=== PATIENT | female | born 1965 | race Caucasian/White ===

== ENCOUNTER 2017-04-07 08:40 | Emergency (ER) | payer SELFPAY ==
--- NOTE | 2017-04-07 09:24 | ER Document Report ---
ED Medical Screen (RME) - General Information source: Patient TRAVEL OUTSIDE OF THE [place] IN LAST 30 DAYS: No <BIJU DOVER - Last Filed: 04/07/17 09:28> <INCOLE FERNANEDS - Last Filed: 04/07/17 12:27> - General Chief Complaint: Abdominal Pain Stated Complaint: SIDE PAIN Time Seen by Provider: 04/07/17 09:20 Notes: 51 year old female with a PMHx of HTN who presents to the ED with RLQ abdominal pain for 2 months. She states that her abdominal pain is consistent for the past two months and she has seen her OB, Dr. Goff who performed an ultrasound and sonogram with abnormal findings per patient. She states that Dr. Goff would like to have an CT performed. Patient is still menstruating. ( BIJU DOVER) - Related Data Allergies/Adverse Reactions: No Known Allergies Allergy (Verified 04/07/17 08:42) Past Medical History - General Information source: Patient - Social History Chew tobacco use (# tins/day): No Frequency of alcohol use: None Drug Abuse: None - Past Medical History Cardiac Medical History: Reports: Hx Hypertension Renal/ Medical History: Denies: Hx Peritoneal Dialysis <BIJU DOVER - Last Filed: 04/07/17 09:28> Review of Systems - Review of Systems Gastrointestinal: See HPI, Abdominal pain - RLQ <BIJU DOVER - Last Filed: 04/07/17 09:28> Physical Exam - General General appearance: Appears well, Alert In distress: None - Respiratory Respiratory status: No respiratory distress Chest status: Nontender Breath sounds: Normal Chest palpation: Normal - Abdominal Inspection: Normal Tenderness: Nontender - Neurological Neuro grossly intact: Yes Cognition: Normal Orientation: AAOx4 - Psychological Associated symptoms: Normal affect, Normal mood - Skin Skin Temperature: Warm Skin Moisture: Dry Skin Color: Normal <BIJU DOVER - Last Filed: 04/07/17 09:28> - Vital signs Vitals: Temp Pulse Resp BP Pulse Ox 98.1 F 58 L 16 123/75 98 04/07/17 08:43 04/07/17 08:43 04/07/17 08:43 04/07/17 08:43 04/07/17 08:43 Course <BIJU DOVER - Last Filed: 04/07/17 09:28> - Laboratory Result Diagrams: 04/07/17 09:35 04/07/17 09:35 - Diagnostic Test Radiology reviewed: Image reviewed, Reports reviewed <NICOLE FERNANDES - Last Filed: 04/07/17 12:27> - Re-evaluation Re-evalutation: 04/07/17 12:24 Uneventful, CT report and lab reports reviewed. Patient remained comfortable ( NICOLE FERNANDES) - Vital Signs Vital signs: Temp Pulse Resp BP Pulse Ox 98.1 F 58 L 16 123/75 98 04/07/17 08:43 04/07/17 08:43 04/07/17 08:43 04/07/17 08:43 04/07/17 08:43 - Laboratory Laboratory results interpreted by me: 04/07/17 09:35 AST 12 L - Diagnostic Test Radiology results interpreted by me: 04/07/17 12:25 CT of the abdomen and pelvis came back normal (NICOLE FERNANDES) Doctor's Discharge <BIJU DOVER - Last Filed: 04/07/17 09:28> <NICOLE FERNANDES - Last Filed: 04/07/17 12:27> - Discharge Clinical Impression: Abdominal pain Qualifiers: Abdominal location: right lower quadrant Qualified Code(s): R10.31 - Right lower quadrant pain Retained feces Qualifiers: Constipation type: slow transit constipation Qualified Code(s): K59.01 - Slow transit constipation Instructions: Recurring Abdominal Pain, Child ([facility]), Observation for Appendicitis ([facility]), Antispasmodics ([facility]) Prescriptions: Dicyclomine HCl [Bentyl 10 mg Capsule] 1 cap PO TID #30 cap Lactulose [Cephulac Syrup 20 gm/30 ml Udcup] 20 gm PO BID #120 udc Scribe Documentation - Scribe Written by Oneyda:: Oneyda Mercado 04/07/2017 0932 acting as scribe for :: Stephan <BIJU DOVER - Last Filed: 04/07/17 09:28>
[2017-04-07 09:54] LABS: ABSOLUTE MONOCYTES (AUTO) 0.5 10^3/uL (0.1-1.4); ABSOLUTE NEUT (AUTO) 3.3 10^3/uL (1.7-8.2); BASOPHILS % (AUTO) 0.4 % (0-2); EOSINOPHILS % (AUTO) 0.5 % (0-6); HEMATOCRIT 42.3 % (36.0-47.0); HEMOGLOBIN 14.4 g/dL (12.0-15.5); LYMPHOCYTES % (AUTO) 33.4 % (13-45); MEAN CORPUSCULAR HEMOGLOBIN 29.4 pg (27.0-33.4); MEAN CORPUSCULAR HGB CONC 33.9 g/dL (32.0-36.0); MEAN CORPUSCULAR VOLUME 87 fl (80-97); MONOCYTES % (AUTO) 8.7 % (3-13); PLATELET COUNT 269 10^3/uL (150-450); RED BLOOD COUNT 4.88 10^6/uL (3.72-5.28); RED CELL DISTRIBUTION WIDTH 13.3 % (11.5-14.0); TOTAL CELLS COUNTED % (AUTO) 100 %; WHITE BLOOD COUNT 5.9 10^3/uL (4.0-10.5)
[2017-04-07 09:58] LABS: APPEARANCE,URINE CLEAR; BILIRUBIN,URINE NEGATIVE (NEGATIVE); COLOR,URINE YELLOW; GLUCOSE, URINE NEGATIVE (NEGATIVE); KETONES,URINE NEGATIVE (NEGATIVE); LEUKOCYTE ESTERASE,URINE NEGATIVE (NEGATIVE); NITRITE,URINE NEGATIVE (NEGATIVE); PROTEIN,URINE NEGATIVE (NEGATIVE); URINE SPECIFIC GRAVITY 1.015; UROBILINOGEN,URINE NEGATIVE mg/dL (<2.0)
[2017-04-07 10:11] LABS: ALANINE AMINOTRANSFERASE 19 U/L (9-52); ALBUMIN 4.6 g/dL (3.5-5.0); ALKALINE PHOSPHATASE 72 U/L (38-126); ANION GAP 14 (5-19); ASPARTATE AMINO TRANSFERASE 12 U/L (14-36); BILIRUBIN,DIRECT 0.3 mg/dL (0.0-0.4); BILIRUBIN,TOTAL 0.7 mg/dL (0.2-1.3); BLOOD UREA NITROGEN 16 mg/dL (7-20); CALCIUM 9.7 mg/dL (8.4-10.2); CARBON DIOXIDE 27 mmol/L (22-30); CHLORIDE 98 mmol/L (98-107); GLUCOSE 88 mg/dL (75-110); POTASSIUM 4.4 mmol/L (3.6-5.0); SODIUM 139.4 mmol/L (137-145)
--- NOTE | 2017-04-07 10:53 | RADIOLOGY REPORT (SQ) ---
EXAM DESCRIPTION: CT ABDOMEN IV CONTRAST ONLY COMPLETED DATE/TIME: 04/07/2017 10:46 am REASON FOR STUDY: RLQ pain COMPARISON: None. TECHNIQUE: CT scan of the abdomen and pelvis performed using helical scanning technique with dynamic intravenous contrast injection. No oral contrast. Images reviewed with lung, soft tissue, and bone windows. Reconstructed coronal and sagittal MPR images reviewed. Delayed images for evaluation of the urinary system also acquired. All images stored on PACS. All CT scanners at this facility use dose modulation, iterative reconstruction, and/or weight based d osing when appropriate to reduce radiation dose to as low as reasonably achievable (ALARA). [facility]: Dose Right [facility]: CareDose [facility]: Dose Right [facility]: Teradose 4D [facility]: [email or web address] CONTRAST TYPE AND DOSE: contrast/concentration: Isovue 370.00 mg/ml; Total Contrast Delivered: 80.0 ml; Total Saline Delivered: 56.0 ml RENAL FUNCTION: GFR > 60. RADIATION DOSE: CT Rad equipment meets quality standard of care and radiation dose reduction techniq ues were employed. CTDIvol: 8.2 - 11.8 mGy. DLP: 1078 mGy-cm.. LIMITATIONS: None. FINDINGS: LOWER CHEST: No significant findings. No nodules or infiltrates. LIVER: Normal size. No masses. No dilated ducts. SPLEEN: Normal size. No focal lesions. PANCREAS: No masses. No significant calcifications. No adjacent inflammation or peripancreatic fluid collections. Pancreatic duct not dilated. GALLBLADDER: No identified stones by CT criteria. No inflammatory changes to suggest cholecystitis. ADRENAL GLANDS: No significant masses or asymmetry. RIGHT KIDNEY AND URETER: No solid masses. No significant calcifications. No hydronephrosis or hyd roureter. LEFT KIDNEY AND URETER: No solid masses. No significant calcifications. No hydronephrosis or hydr oureter. AORTA AND VESSELS: No aneurysm. No dissection. Renal arteries, SMA, celiac without stenosis. RETROPERITONEUM: No retroperitoneal adenopathy, hemorrhage or masses. BOWEL AND PERITONEAL CAVITY: No masses or inflammatory changes. No free fluid or peritoneal masses. APPENDIX: Normal. PELVIS: No mass. No free fluid. Normal bladder. ABDOMINAL WALL: No masses. No hernias. BONES: No significant or acute findings. OTHER: No other significant finding. IMPRESSION: NO SIGNIFICANT OR ACUTE FINDING IN THE ABDOMEN OR PELVIS ON CT SCAN WITH IV CONTRAST. TECHNICAL DOCUMENTATION: JOB ID: [id number] Quality ID # [id number]: Final reports with documentation of one or more dose reduction techniques (e.g., Au tomated exposure control, adjustment of the mA and/or kV according to patient size, use of iterative reconstruction technique) 2010 [employer]- All Rights Reserved Reading location - IP/workstation name: [email or web address]
[2017-04-07 12:41] VITALS: BP 114/74
== END 2017-04-07 12:41 | disposition home or self-care (01) ==
LOC: ER 08:40
DX: K59.01 Slow transit constipation (principal); R10.31 Right lower quadrant pain; I10 Essential (primary) hypertension
CPT/HCPCS: 36415; 74160; 80053; 81001; 84703; 85025; 99284

== ENCOUNTER 2018-07-24 18:32 | Emergency (ER) | payer BC ==
[2018-07-24] MEDS ORDERED: IBUPROFEN 800 MG TABLET PO ONE (19:18)
[2018-07-24 19:31] LABS: APPEARANCE,URINE CLEAR; BILIRUBIN,URINE NEGATIVE (NEGATIVE); COLOR,URINE COLORLESS; GLUCOSE, URINE NEGATIVE (NEGATIVE); KETONES,URINE NEGATIVE (NEGATIVE); LEUKOCYTE ESTERASE,URINE NEGATIVE (NEGATIVE); NITRITE,URINE NEGATIVE (NEGATIVE); PROTEIN,URINE NEGATIVE (NEGATIVE); URINE SPECIFIC GRAVITY 1.003; UROBILINOGEN,URINE NEGATIVE mg/dL (<2.0)
--- NOTE | 2018-07-24 20:14 | RADIOLOGY REPORT (SQ) ---
EXAM DESCRIPTION: US PELVIS TRANSVAGINAL COMPLETED DATE/TME: 07/24/2018 19:17 EXAM DESCRIPTION: Right pelvic pain CLINICAL HISTORY: right pelvic pain COMPARISON: None. FINDINGS: Transvaginal images of the pelvis were submitted. The uterus measures 9.5 x 6.4 x 5 cm. The endometrial complex measured 4.5 mm which is within normal limits. There is a 1.5 x 1.2 x 1 cm cyst at the level of the upper cervix compatible with a nabothian cyst. There is a 8 x 5 x 6 mm cyst within the fundus of the uterus without discrete internal echoes. The right ovary measured 2.2 x 1.7 x 1.9 cm and contains a 1.7 x 1.7 x 1.4 cm ovarian cyst. As per best practice protocol, no further follow-up imaging of this cyst recommended. Left ovary measured 1.8 x 2.8 x 2.1 cm. There is no sonographic evidence of ovarian torsion. IMPRESSION: 8 mm cystic structure at the uterine fundus of unknown etiology. Correlation with status recommended. Short-term follow-up recommended.
--- NOTE | 2018-07-24 22:33 | ER Document Report ---
ED General - General Chief Complaint: Abdominal Pain Stated Complaint: ABDOMINAL PAIN Time Seen by Provider: 07/24/18 19:09 Mode of Arrival: Ambulatory Information source: Patient, [facility] Records Notes: 52-year-old female with hypertension, migraine headaches, hypothyroidism, recent diagnosis of bacterial vaginosis presents with 3 days of right lower quadrant pain that she describes as a an aching sharp pain that is intermittent, worse with movement and not associated with any fever, chills, nausea, vomiting, diarrhea. Patient states that her last bowel movement was yesterday. She denies any black or bloody stools. She does state that she was diagnosed by her primary care physician with bacterial vaginosis and started on Flagyl which she has been taken. Patient has not had any vaginal discharge. She does report a colonoscopy in 2017 which she reports to be normal. She has not tried any medication for this pain and is currently declining any medication. TRAVEL OUTSIDE OF THE [place] IN LAST 30 DAYS: No - HPI Onset: Other Onset/Duration: Gradual, Persistent Quality of pain: Achy, Sharp Severity: Moderate Pain Level: 2 Associated symptoms: denies: Body/muscle aches, Chest pain, Diarrhea, Fever, Nausea, Vomiting, Shortness of breath Exacerbated by: Movement Relieved by: Remaining still Similar symptoms previously: Yes Recently seen / treated by doctor: Yes - Related Data Allergies/Adverse Reactions: adhesive tape Allergy (Verified 07/24/18 18:34) Past Medical History - General Information source: Patient, [facility] Records - Social History Smoking Status: Never Smoker Frequency of alcohol use: None Drug Abuse: None Lives with: Spouse/Significant other Family History: Reviewed & Not Pertinent Patient has suicidal ideation: No Patient has homicidal ideation: No - Past Medical History Cardiac Medical History: Reports: Hx Hypertension Denies: Hx Heart Attack Pulmonary Medical History: Denies: Hx Asthma Neurological Medical History: Reports: Hx Migraine. Denies: Hx Cerebrovascular Accident, Hx Seizures Renal/ Medical History: Denies: Hx Peritoneal Dialysis GI Medical History: Denies: Hx Hepatitis, Hx Hiatal Hernia, Hx Ulcer Infectious Medical History: Denies: Hx Hepatitis Past Surgical History: Reports: Hx Abdominal Surgery - [id number] fallopian, Hx Section - 1, Hx Gynecologic Surgery - ablation, Hx Orthopedic Surgery - l carpal tunnel, right shoulder, left shoulder. Denies: Hx Mastectomy, Hx Open Heart Surgery, Hx Pacemaker Review of Systems - Review of Systems Notes: REVIEW OF SYSTEMS: CONSTITUTIONAL : Denies fever, chills, or sweats. Denies recent illness. Denies weight loss, recent hospitalizations. EENT: Denies visual changes, eye pain. Denies sore throat, oral lesions, difficulty swallowing. CARDIOVASCULAR: Denies chest pain. Denies palpitations. Denies lower extremity edema. RESPIRATORY: Denies cough. Denies shortness of breath, wheezing. GASTROINTESTINAL: Denies abdominal distention. Denies nausea, vomiting, or diarrhea. Denies blood in vomitus, stools, or per rectum. Denies black, tarry stools. Denies constipation. GENITOURINARY: Denies difficulty urinating, painful urination, frequency, blood in urine, or vaginal discharge. MUSCULOSKELETAL: Denies back or neck pain or stiffness. Denies joint pain or swelling. SKIN: Denies rash, lesions or sores. HEMATOLOGIC : Denies easy bruising or bleeding. LYMPHATIC: Denies swollen glands. NEUROLOGICAL: Denies confusion or altered mental status. Denies loss of consciousness. Denies dizziness or lightheadedness. Denies headache. Denies weakness or paralysis. Denies problems difficulty with ambulation, slurred speech. Denies sensory loss, numbness, or tingling. Denies seizures. PSYCHIATRIC: Denies anxiety or stress. Denies depression, suicidal ideation, or homicidal ideation. Denies visual or auditory hallucinations. Physical Exam - Vital signs Vitals: Temp Pulse Resp BP Pulse Ox 97.6 F 61 16 126/72 H 96 07/24/18 18:43 07/24/18 18:43 07/24/18 18:43 07/24/18 18:43 07/24/18 18:43 - Notes Notes: PHYSICAL EXAMINATION: GENERAL: Well-appearing, well-nourished and in no acute distress. HEAD: Atraumatic, normocephalic. EYES: Pupils equal round and reactive to light, extraocular movements intact, conjunctiva are normal. ENT: Nares patent, oropharynx clear without exudates. Moist mucous membranes. NECK: Normal range of motion, supple without lymphadenopathy LUNGS: Breath sounds clear to auscultation bilaterally and equal. No wheezes rales or rhonchi. HEART: Regular rate and rhythm without murmurs ABDOMEN: Mild tenderness with palpation to the right lower quadrant. No guarding, no rebound. No masses appreciated. Female : deferred Musculoskeletal: Normal range of motion, no pitting or edema. No cyanosis. NEUROLOGICAL: Cranial nerves grossly intact. Normal speech, normal gait. Normal sensory, motor exams PSYCH: Normal mood, normal affect. SKIN: Warm, Dry, normal turgor, no rashes or lesions noted. Course - Re-evaluation Re-evalutation: 07/24/18 22:32 Transvaginal US 07/24/18 19:17 IMPRESSION: 8 mm cystic structure at the uterine fundus of unknown etiology. Correlation with status recommended. Short-term follow-up recommended. Temp Pulse Resp BP Pulse Ox 97.6 F 61 16 126/72 H 96 07/24/18 18:43 07/24/18 18:43 07/24/18 18:43 07/24/18 18:43 07/24/18 18:43 Laboratory 07/24/18 07/24/18 07/24/18 18:44 18:44 22:49 WBC 4.8 RBC 4.46 Hgb 13.2 Hct 37.9 MCV 85 MCH 29.5 MCHC 34.8 RDW 13.1 Plt Count 217 Seg Neutrophils % 45.6 Lymphocytes % 43.2 Monocytes % 8.9 Eosinophils % 1.9 Basophils % 0.4 Absolute Neutrophils 2.2 Absolute Lymphocytes 2.1 Absolute Monocytes 0.4 Absolute Eosinophils 0.1 Absolute Basophils 0.0 Sodium Potassium Chloride Carbon Dioxide Anion Gap BUN Creatinine Est GFR ( Amer) Est GFR (Non-Af Amer) Glucose Calcium Total Bilirubin Direct Bilirubin Neonat Total Bilirubin Neonat Direct Bilirubin Neonat Indirect Bili AST ALT Alkaline Phosphatase Total Protein Albumin Lipase Urine Color COLORLESS Cancelled Urine Appearance CLEAR Cancelled Urine pH 7.0 Cancelled Ur Specific [place] 1.003 Cancelled Urine Protein NEGATIVE Cancelled Urine Glucose (UA) NEGATIVE Cancelled Urine Ketones NEGATIVE Cancelled Urine Blood NEGATIVE Cancelled Urine Nitrite NEGATIVE Cancelled Urine Bilirubin NEGATIVE Cancelled Urine Urobilinogen NEGATIVE Cancelled Ur Leukocyte Esterase NEGATIVE Cancelled Urine WBC (Auto) Cancelled Urine RBC (Auto) Cancelled U Hyaline Cast (Auto) Cancelled Urine Bacteria (Auto) Cancelled Urine Red Cell Clumps Cancelled Urine WBC Clumps Cancelled Squamous Epi Cells Auto <1 Cancelled U Non-Squamous Epis Auto Cancelled Calcium Carbonate Cryst Cancelled Calcium Phosphate Cryst Cancelled Calcium Oxalate Cr Auto Cancelled Leucine Crystals Cancelled Cystine Crystals Cancelled Uric Acid Cryst (Auto) Cancelled Triple Phos Cryst (Auto) Cancelled Tyrosine Crystals Cancelled Amorphous Sediment Auto Cancelled Cellular Casts Cancelled Epithelial Casts (Auto) Cancelled Fatty Casts Cancelled Granular Casts (Auto) Cancelled Waxy Casts (Auto) Cancelled Broad Casts Cancelled RBC Casts (Auto) Cancelled WBC Casts (Auto) Cancelled Urine Mucus (Auto) RARE Cancelled U Trichomonas (Auto) Cancelled Ur Yeast w Hyphae Cancelled Urine Yeast (Budding) Cancelled Urine Ascorbic Acid NEGATIVE Cancelled Urine HCG, Qual NEGATIVE 07/24/18 22:49 WBC RBC Hgb Hct MCV MCH MCHC RDW Plt Count Seg Neutrophils % Lymphocytes % Monocytes % Eosinophils % Basophils % Absolute Neutrophils Absolute Lymphocytes Absolute Monocytes Absolute Eosinophils Absolute Basophils Sodium 137.0 Potassium 3.9 Chloride 100 Carbon Dioxide 27 Anion Gap 10 BUN 12 Creatinine 0.74 Est GFR ( Amer) > 60 Est GFR (Non-Af Amer) > 60 Glucose 92 Calcium 9.7 Total Bilirubin 0.3 Direct Bilirubin 0.2 Neonat Total Bilirubin Not Reportable Neonat Direct Bilirubin Not Reportable Neonat Indirect Bili Not Reportable AST 15 ALT 19 Alkaline Phosphatase 67 Total Protein 7.2 Albumin 4.0 Lipase 141.5 Urine Color Urine Appearance Urine pH Ur Specific [place] Urine Protein Urine Glucose (UA) Urine Ketones Urine Blood Urine Nitrite Urine Bilirubin Urine Urobilinogen Ur Leukocyte Esterase Urine WBC (Auto) Urine RBC (Auto) U Hyaline Cast (Auto) Urine Bacteria (Auto) Urine Red Cell Clumps Urine WBC Clumps Squamous Epi Cells Auto U Non-Squamous Epis Auto Calcium Carbonate Cryst Calcium Phosphate Cryst Calcium Oxalate Cr Auto Leucine Crystals Cystine Crystals Uric Acid Cryst (Auto) Triple Phos Cryst (Auto) Tyrosine Crystals Amorphous Sediment Auto Cellular Casts Epithelial Casts (Auto) Fatty Casts Granular Casts (Auto) Waxy Casts (Auto) Broad Casts RBC Casts (Auto) WBC Casts (Auto) Urine Mucus (Auto) U Trichomonas (Auto) Ur Yeast w Hyphae Urine Yeast (Budding) Urine Ascorbic Acid Urine HCG, Qual Temp Pulse Resp BP Pulse Ox 97.6 F 61 16 126/72 H 96 07/24/18 18:43 07/24/18 18:43 07/24/18 18:43 07/24/18 18:43 07/24/18 18:43 Transvaginal US 07/24/18 19:17 IMPRESSION: 8 mm cystic structure at the uterine fundus of unknown etiology. Correlation with status recommended. Short-term follow-up recommended. Abdomen/Pelvis CT 07/24/18 22:28 IMPRESSION: No acute findings. 52-year-old female presented with complaint of right lower quadrant abdominal pain that has been present for 3 days. She describes the pain as sharp, cramping and worse with movement. Vital signs reviewed and within normal limits. Patient does not appear toxic or dehydrated. She is in no acute distre ss. Exam is significant for mild tenderness to the right lower quadrant without guarding or rebound. Patient does report a recent diagnosis of bacterial vaginosis by her primary care physician yesterday who performed a pelvic exam and swabs. She states she has been taking Flagyl as recommended. Transvaginal ultrasound was obtained and showed an 8 mm cystic structure at the uterine fundus of unknown etiology. CT of the abdomen and pelvis will be obtained. Patient declining any pain medication at this time. 07/25/18 00:23 CT of the abdomen was obtained and showed no acute findings. Patient's abdominal pain could be secondary to recent Flagyl's start. Patient was provided copies of her ultrasound report and she has been advised to follow-up with her [employer]. Patient was evaluated and treated as appropriate for the patient's presenting symptoms and complaint, with consideration of any critical or life threatening conditions that may be associated with their obtained history and exam as noted above. All results were discussed with patient and who is at the bedside. patient provided the opportunity to ask questions, and express concerns. Patient was educated on treatments based on their presumed diagnosis as noted above. At this time we will discharge the patient with return precautions and follow-up recommendations. Verbal discharge instructions given a the bedside. Medication warnings reviewed. Patient is in agreement with this plan and has verbalized understanding of return precautions. After careful consideration I feel that that patient can be safely discharged from the emergency department, they were advised to followup with a primary care physician in 2-3 days. Dictation on this chart was performed using voice recognition software and may result in unintended grammatical, spelling, syntax or errors. - Vital Signs Vital signs: Temp Pulse Resp BP Pulse Ox 97.7 F 63 16 113/71 97 07/25/18 00:59 07/25/18 00:59 07/25/18 00:59 07/25/18 00:59 07/25/18 00:59 - Laboratory Result Diagrams: 07/24/18 22:49 07/24/18 22:49 - Diagnostic Test Radiology reviewed: Image reviewed, Reports reviewed Discharge - Discharge Clinical Impression: Cystic structure in pelvis Abdominal pain Qualifiers: Abdominal location: unspecified location Qualified Code(s): R10.9 - Unspecified abdominal pain Condition: Good Disposition: HOME, SELF-CARE Instructions: Abdominal Pain ([facility]) Additional Instructions: Your ultrasound showed an 8 mm cystic structure in the pelvis. On CAT scan today did not mention this structure. You have been provided copies of your imaging that was performed today. Please follow-up with your [employer]. Prescriptions: Ketorolac Tromethamine [Toradol 10 mg Tablet] 10 mg PO Q6HP PRN #12 tablet PRN Reason: Ondansetron [Zofran Odt 4 mg Tablet] 1 - 2 tab PO Q4H PRN #15 tab.rapdis PRN Reason: For Nausea/Vomiting Forms: Return to Work
[2018-07-24 23:01] LABS: ABSOLUTE EOSINOPHILS # (AUTO) 0.1 10^3/uL (0.0-0.6); ABSOLUTE LYMPHOCYTES (AUTO) 2.1 10^3/uL (0.5-4.7); ABSOLUTE MONOCYTES (AUTO) 0.4 10^3/uL (0.1-1.4); ABSOLUTE NEUT (AUTO) 2.2 10^3/uL (1.7-8.2); EOSINOPHILS % (AUTO) 1.9 % (0-6); HEMATOCRIT 37.9 % (36.0-47.0); TOTAL CELLS COUNTED % (AUTO) 100 %
[2018-07-24 23:06] LABS: BASOPHILS % (AUTO) 0.4 % (0-2); HEMOGLOBIN 13.2 g/dL (12.0-15.5); LYMPHOCYTES % (AUTO) 43.2 % (13-45); MEAN CORPUSCULAR HEMOGLOBIN 29.5 pg (27.0-33.4); MEAN CORPUSCULAR HGB CONC 34.8 g/dL (32.0-36.0); MEAN CORPUSCULAR VOLUME 85 fl (80-97); MONOCYTES % (AUTO) 8.9 % (3-13); PLATELET COUNT 217 10^3/uL (150-450); RED BLOOD COUNT 4.46 10^6/uL (3.72-5.28); RED CELL DISTRIBUTION WIDTH 13.1 % (11.5-14.0); SEGMENTED NEUTROPHILS % (AUTO) 45.6 % (42-78); WHITE BLOOD COUNT 4.8 10^3/uL (4.0-10.5)
[2018-07-24 23:18] LABS: ALANINE AMINOTRANSFERASE 19 U/L (9-52); ALKALINE PHOSPHATASE 67 U/L (38-126); ANION GAP 10 (5-19); ASPARTATE AMINO TRANSFERASE 15 U/L (14-36); BILIRUBIN,DIRECT 0.2 mg/dL (0.0-0.4); BILIRUBIN,TOTAL 0.3 mg/dL (0.2-1.3); BLOOD UREA NITROGEN 12 mg/dL (7-20); CALCIUM 9.7 mg/dL (8.4-10.2); CARBON DIOXIDE 27 mmol/L (22-30); CHLORIDE 100 mmol/L (98-107); GLUCOSE 92 mg/dL (75-110); LIPASE 141.5 U/L (23-300); POTASSIUM 3.9 mmol/L (3.6-5.0); TOTAL PROTEIN 7.2 g/dL (6.3-8.2)
--- NOTE | 2018-07-25 00:08 | RADIOLOGY REPORT (SQ) ---
EXAM DESCRIPTION: CT ABDOMEN PELVIS WITH IV CONTRAST COMPLETED DATE/TME: 07/24/2018 22:28 CLINICAL HISTORY: 52 years Female, rla pain Comparison: 04/07/17 Technique: IV contrast. Coronal and sagittal reformat. This exam was performed according to our departmental dose-optimization program, which includes automated exposure control, adjustment of the mA and/or kV according to patient size and/or use of iterative reconstruction technique. [facility]: Dose Right [facility]: CareDose [facility]: Dose Right [facility]: Teradose 4D [facility]: [employer] LIMITATIONS: None Findings: No ascites. Degenerative disc disease. Spondylosis. Normal appendix. No gross evidence of gallbladder inflammation or hepatobiliary obstruction. No bowel obstruction. No hydronephrosis or hydroureter. No renal/ureteral stone. No evidence of abdominal aortic aneurysm. Inferior thorax, liver, gallbladder, pancreas, spleen, adrenals, renal system, gastrointestinal tract, pelvic organs, lymphatics, vasculature, and musculoskeleton appear otherwise unremarkable. IMPRESSION: No acute findings.
[2018-07-25] MEDS ORDERED: MORPHINE SULFATE 10 MG/ML INJ IV ONE (00:21)
[2018-07-25] MEDS ORDERED: ONDANSETRON HCL INJ/PF 4 MG/2 ML SDV IV ONE (00:22)
[2018-07-25 01:07] VITALS: BP 113/71
== END 2018-07-25 01:08 | disposition home or self-care (01) ==
LOC: ER 18:32
DX: N76.0 Acute vaginitis (principal); B96.89 Other specified bacterial agents as the cause of diseases classified elsewhere; N94.89 Other specified conditions associated with female genital organs and menstrual cycle; R10.31 Right lower quadrant pain; I10 Essential (primary) hypertension
CPT/HCPCS: 99284; 96374; 96375; 36415; 87086; 83690; 85025; 81025; 80053; 81001; 76830; 74177; J2270; J2405